=== PATIENT | male | born 2000 | race Caucasian/White ===

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

== ENCOUNTER 2021-03-18 18:05 | Emergency (ER) | payer SELFPAY ==
[2021-03-18 19:02] LABS: #Basophils 0.1 thou/uL (0.0-0.2); #Eosinphils 0.2 thou/uL (0.0-0.7); #Lymphocytes 1.7 thou/uL (1.20-3.40); #Monocytes 0.5 thou/uL (0.11-0.59); #Neutrophils 2.6 thou/uL (1.40-6.50); %Basophils 1.8 % (0.0-1.0); %Eosinophils 4.5 % (0.0-10.0); %Lymphocytes 33.3 % (28.0-48.0); %Monocytes 9.6 % (0.0-4.0); %Neutrophils 50.8 % (31.0-61.0); Hemoglobin 13.9 g/dL (14.0-18.0); Mean Corpuscular HGB CONC 32.2 g/dL (32.0-36.0); Mean Corpuscular Hemoglobin 28.1 pg (25.0-35.0); Mean Corpuscular Volume 87.4 fL (78.0-98.0); Mean Platelet Volume 6.3 fL (7.4-10.4); Platelet Count 272 thou/uL (130-400); RBC Distribution Width 14.4 % (11.5-14.5); Red Blood Cell (RBC) Count 4.95 mill/uL (4.00-5.20); White Blood Cell (WBC) Count 5.2 thou/uL (4.8-10.8)
[2021-03-18 19:13] LABS: ALT (SGPT) 14 U/L (8-55); AST (SGOT) 12 U/L (5-34); Albumin 3.9 g/dL (3.5-5.0); Alkaline Phosphatase 115 U/L (50-130); Anion Gap 13 mmol/L (10-20); BUN (Urea Nitrogen) 6 mg/dL (8.9-20.6); Bilirubin, Total 0.5 mg/dL (0.2-1.2); Calc. Creatinine Clearance 0 mL/min (70-130); Calcium 9.8 mg/dL (7.8-10.44); Carbon Dioxide 27 mmol/L (22-29); Chloride 103 mmol/L (98-107); Globulin 3.3 g/dL (2.4-3.5); Glucose 86 mg/dL (70-105); Potassium 3.6 mmol/L (3.5-5.1); Protein, Total 7.2 g/dL (6.0-8.3); Sodium 139 mmol/L (136-145)
== END 2021-03-18 19:55 | disposition home or self-care (01) ==
LOC: BURERS 18:05
DX: R07.89 Other chest pain (principal); F17.290 Nicotine dependence, other tobacco product, uncomplicated; Z79.01 Long term (current) use of anticoagulants; Z79.899 Other long term (current) drug therapy
CPT/HCPCS: 36415; 71046; 80053; 84484; 85025; 93005; 94760

== ENCOUNTER 2021-03-24 17:08 | Emergency (ER) | payer SELFPAY | END 2021-03-24 17:38 | disposition home or self-care (01) | LOC: BURERS 17:08 | DX: R07.89 Other chest pain (principal); F17.290 Nicotine dependence, other tobacco product, uncomplicated; Z79.899 Other long term (current) drug therapy | CPT/HCPCS: 99281 ==

== ENCOUNTER 2021-04-07 14:55 | Emergency (ER) | payer SELFPAY | END 2021-04-07 16:38 | disposition home or self-care (01) | LOC: BURERS 14:55 | DX: K94.09 Other complications of colostomy (principal); F17.290 Nicotine dependence, other tobacco product, uncomplicated | CPT/HCPCS: 99282 ==

== ENCOUNTER 2021-04-12 07:39 | Emergency (ER) | payer SELFPAY | END 2021-04-12 08:37 | disposition home or self-care (01) | LOC: BURERS 07:39 | DX: K94.09 Other complications of colostomy (principal); Z87.891 Personal history of nicotine dependence | CPT/HCPCS: 99282 ==

== ENCOUNTER 2021-05-13 19:02 | Emergency (ER) | payer SELFPAY | END 2021-05-13 20:09 | disposition home or self-care (01) | LOC: BURERS 19:02 | DX: K94.03 Colostomy malfunction (principal); Z87.891 Personal history of nicotine dependence | CPT/HCPCS: 99282 ==

== ENCOUNTER 2021-05-25 10:48 | Emergency (ER) | payer SELFPAY | END 2021-05-25 11:35 | disposition home or self-care (01) | LOC: BURERS 10:48 | DX: Z43.3 Encounter for attention to colostomy (principal) | CPT/HCPCS: 99282 ==

== ENCOUNTER 2021-06-10 20:40 | Emergency (ER) | payer SELFPAY | END 2021-06-10 21:12 | disposition home or self-care (01) | LOC: BURERS 20:40 | DX: K94.03 Colostomy malfunction (principal); F17.290 Nicotine dependence, other tobacco product, uncomplicated | CPT/HCPCS: 99282 ==

== ENCOUNTER 2021-06-28 14:09 | Emergency (ER) | payer SELFPAY | END 2021-06-28 14:48 | disposition home or self-care (01) | LOC: BURERS 14:09 | DX: K94.03 Colostomy malfunction (principal); F17.290 Nicotine dependence, other tobacco product, uncomplicated | CPT/HCPCS: 99282 ==

== ENCOUNTER 2021-07-15 11:02 | Emergency (ER) | payer SELFPAY | END 2021-07-15 12:28 | disposition home or self-care (01) | LOC: BURERS 11:02 | DX: K94.03 Colostomy malfunction (principal); F17.290 Nicotine dependence, other tobacco product, uncomplicated | CPT/HCPCS: 99282 ==